=== PATIENT | male | born 1940 | race Caucasian/White ===

== ENCOUNTER 2017-05-07 04:13 | Emergency (ER) | payer MEDICARE ==
[2017-05-07 05:03] LABS: #Basophils 0.1 thou/uL (0.0-0.2); #Eosinphils 0.1 thou/uL (0.0-0.7); #Lymphocytes 1.8 thou/uL (1.20-3.40); #Monocytes 0.9 thou/uL (0.11-0.59); #Neutrophils 6.9 thou/uL (1.40-6.50); %Eosinophils 1.4 % (0.0-10.0); %Lymphocytes 18.6 % (21.0-51.0); %Monocytes 8.6 % (0.0-10.0); %Neutrophils 70.3 % (42.0-75.0); Hemoglobin 14.9 g/dL (14.0-18.0); Mean Corpuscular HGB CONC 34.1 g/dL (32.0-36.0); Mean Corpuscular Hemoglobin 31.3 pg (27.0-31.0); Mean Corpuscular Volume 91.8 fl (80.0-94.0); Mean Platelet Volume 6.9 fL (7.4-10.4); Platelet Count 220 thou/uL (130-400); RBC Distribution Width 12.1 % (11.5-14.5); Red Blood Cell (RBC) Count 4.76 mill/uL (4.70-6.10); White Blood Cell (WBC) Count 9.8 thou/uL (4.8-10.8)
[2017-05-07 05:17] LABS: ALT (SGPT) 15 U/L (8-55); AST (SGOT) 18 U/L (5-34); Albumin 4.7 g/dL (3.4-4.8); Alkaline Phosphatase 103 U/L (40-150); Anion Gap 13 mmol/L (10-20); BUN (Urea Nitrogen) 13 mg/dL (8.4-25.7); Bilirubin, Total 0.6 mg/dL (0.2-1.2); CK (CPK) 108 U/L (30-200); Calc. Creatinine Clearance 0 mL/min (70-130); Calcium 9.7 mg/dL (7.8-10.44); Carbon Dioxide 28 mmol/L (23-31); Chloride 97 mmol/L (98-107); Estimated GFR-MDRD 85; Globulin 2.6 g/dL (2.4-3.5); Glucose 79 mg/dL (83-110); Lipase 30 U/L (8-78); Potassium 3.6 mmol/L (3.5-5.1); Protein, Total 7.3 g/dL (5.8-8.1); Sodium 134 mmol/L (136-145)
[2017-05-07 05:21] LABS: CKMB 1.8 ng/mL (0-6.6); Troponin I Less than 0.010 ng/mL (< 0.028)
--- NOTE | 2017-05-07 08:28 | RAD ---
PORTABLE CHEST: Date: 05/07/17 PROVIDED CLINICAL HISTORY: Chest pain. FINDINGS: Comparison made with the study dated 07/09/12. Cardiac and mediastinal silhouette is within normal limits. Chronic obstructive changes are suggested . Calcified granuloma right lung base. No focal consolidation, pleural fluid, or pneumothorax apparen t. IMPRESSION: No evidence for an acute cardiopulmonary process. POS: [facility]
--- NOTE | 2017-06-17 14:58 | EKG ---
Test Reason : Blood Pressure : / mmHG Vent. Rate : 077 BPM Atrial Rate : 077 BPM P-R Int : 120 ms QRS Dur : 100 ms QT Int : 392 ms P-R-T Axes : 065 030 067 degrees QTc Int : 443 ms Normal sinus rhythm Low voltage QRS Borderline ECG Confirmed by JACKSON BARDALES, SEBASTIÁN ([id number]), editorial intern LUIZA SANFORD ([id number]) on 06/17/2017 2:57:21 PM Referred By: Confirmed By:SEBASTIÁN PAZ MD
== END 2017-05-07 05:40 | disposition home or self-care (01) ==
LOC: ERS 04:13
DX: J44.9 Chronic obstructive pulmonary disease, unspecified (principal); I10 Essential (primary) hypertension; E78.00 Pure hypercholesterolemia, unspecified; N40.0 Benign prostatic hyperplasia without lower urinary tract symptoms; F17.210 Nicotine dependence, cigarettes, uncomplicated; Z79.899 Other long term (current) drug therapy
CPT/HCPCS: 71045; 80053; 82550; 82553; 83605; 83690; 83880; 84484; 85025; 85379; 87040; 93005; 94640; 96360; J7620

== ENCOUNTER 2018-02-08 07:32 | Emergency (ER) | payer MEDICARE ==
[2018-02-08] MEDS ORDERED: Magnesium 2 GM/50 ML BAG (IN WATER) ONE (07:55)
[2018-02-08] MEDS ORDERED: methylPREDNISolone Sod Succ/PF 125 MG/2 ML VIAL ONE (07:56)
[2018-02-08 08:18] LABS: #Basophils 0.1 thou/uL (0.0-0.2); #Lymphocytes 0.7 thou/uL (1.20-3.40); #Monocytes 0.6 thou/uL (0.11-0.59); #Neutrophils 8.5 thou/uL (1.40-6.50); %Basophils 1.2 % (0.0-1.0); %Eosinophils 0.2 % (0.0-10.0); %Monocytes 6.2 % (0.0-10.0); %Neutrophils 85.4 % (42.0-75.0); Hemoglobin 14.7 g/dL (14.0-18.0); Mean Corpuscular HGB CONC 34.3 g/dL (32.0-36.0); Mean Corpuscular Hemoglobin 31.3 pg (27.0-31.0); Mean Corpuscular Volume 91.2 fL (78.0-98.0); Mean Platelet Volume 6.6 fL (7.4-10.4); Platelet Count 212 thou/uL (130-400)
[2018-02-08 08:34] LABS: ALT (SGPT) 12 U/L (8-55); AST (SGOT) 16 U/L (5-34); Albumin 4.2 g/dL (3.4-4.8); Alkaline Phosphatase 99 U/L (40-150); Anion Gap 14 mmol/L (10-20); BUN (Urea Nitrogen) 10 mg/dL (8.4-25.7); Bilirubin, Total 0.4 mg/dL (0.2-1.2); Calc. Creatinine Clearance 0 mL/min (70-130); Calcium 9.4 mg/dL (7.8-10.44); Carbon Dioxide 26 mmol/L (23-31); Chloride 96 mmol/L (98-107); Estimated GFR-MDRD 89; Globulin 2.7 g/dL (2.4-3.5); Glucose 101 mg/dL (83-110); Potassium 3.6 mmol/L (3.5-5.1); Protein, Total 6.9 g/dL (5.8-8.1); Sodium 132 mmol/L (136-145)
--- NOTE | 2018-02-08 08:53 | RAD ---
FRONTAL VIEW CHEST: Comparison: 05-03-13 Indication: Dyspnea. Shortness of breath, recent onset, progressive in intensity with productive coug h. FINDINGS: There is interstitial prominence of each lung and the lungs are mildly hyperinflated. Stable right de nsity nodule in the infralateral right chest favors a granulomatous calcification and is similar to . Cardiac silhouette is accentuated with portable technique. There is vascular calcification. IMPRESSION: COPD. POS: [facility]
== END 2018-02-08 09:19 | disposition home or self-care (01) ==
LOC: ERS 07:32
DX: J44.1 Chronic obstructive pulmonary disease with (acute) exacerbation (principal); I10 Essential (primary) hypertension; E78.00 Pure hypercholesterolemia, unspecified; F41.9 Anxiety disorder, unspecified; F17.210 Nicotine dependence, cigarettes, uncomplicated; Z79.899 Other long term (current) drug therapy; Z79.82 Long term (current) use of aspirin
CPT/HCPCS: 71045; 80053; 83880; 84484; 85025; 93005; 94640; 96365; 96375; J2930; J7620

== ENCOUNTER 2018-02-09 13:00 | Emergency (ER) | payer MEDICARE ==
[2018-02-09 13:36] LABS: #Lymphocytes 0.7 thou/uL (1.20-3.40); #Monocytes 0.4 thou/uL (0.11-0.59); %Basophils 0.1 % (0.0-1.0); %Eosinophils 0.1 % (0.0-10.0); %Lymphocytes 5.6 % (21.0-51.0); %Neutrophils 91.3 % (42.0-75.0); Mean Corpuscular HGB CONC 34.2 g/dL (32.0-36.0); Mean Corpuscular Hemoglobin 31.4 pg (27.0-31.0); Mean Corpuscular Volume 91.8 fL (78.0-98.0); Mean Platelet Volume 6.6 fL (7.4-10.4); Platelet Count 222 thou/uL (130-400); RBC Distribution Width 11.9 % (11.5-14.5); Red Blood Cell (RBC) Count 4.78 mill/uL (4.70-6.10); White Blood Cell (WBC) Count 12.1 thou/uL (4.8-10.8)
[2018-02-09 13:56] LABS: ALT (SGPT) 14 U/L (8-55); AST (SGOT) 16 U/L (5-34); Albumin 4.3 g/dL (3.4-4.8); Alkaline Phosphatase 115 U/L (40-150); Anion Gap 15 mmol/L (10-20); BUN (Urea Nitrogen) 14 mg/dL (8.4-25.7); Bilirubin, Total 0.4 mg/dL (0.2-1.2); Calc. Creatinine Clearance 0 mL/min (70-130); Calcium 9.4 mg/dL (7.8-10.44); Carbon Dioxide 26 mmol/L (23-31); Chloride 93 mmol/L (98-107); Estimated GFR-MDRD 79; Globulin 2.6 g/dL (2.4-3.5); Glucose 147 mg/dL (83-110); Potassium 3.5 mmol/L (3.5-5.1); Protein, Total 6.9 g/dL (5.8-8.1); Sodium 130 mmol/L (136-145)
--- NOTE | 2018-02-09 14:00 | RAD ---
PORTABLE CHEST ONE VIEW: Date: 02-09-18 Time: 1:35 p.m. History: Shortness of breath. Dyspnea. FINDINGS: Comparison made with exam of previous day. The heart size is normal. Changes of COPD and old granulomatous disease are again seen. No focal area s of consolidation, pneumothoraces, kenrick pulmonary edema or large effusions are seen. IMPRESSION: No acute process. POS: [facility]
--- NOTE | 2018-02-11 17:58 | EKG ---
Test Reason : SOB Blood Pressure : / mmHG Vent. Rate : 069 BPM Atrial Rate : 069 BPM P-R Int : 130 ms QRS Dur : 104 ms QT Int : 422 ms P-R-T Axes : 057 029 070 degrees QTc Int : 452 ms Sinus rhythm with frequent Premature ventricular complexes Otherwise normal ECG Confirmed by YANETH FERRER DO ([id number]), photography editor LUIZA SANFORD ([id number]) on 02/11/2018 5:58:03 PM Referred By: Confirmed By:YANETH FERRER DO
== END 2018-02-09 15:16 | disposition home or self-care (01) ==
LOC: ERS 13:00
DX: J44.1 Chronic obstructive pulmonary disease with (acute) exacerbation (principal); I10 Essential (primary) hypertension; E78.00 Pure hypercholesterolemia, unspecified; N40.0 Benign prostatic hyperplasia without lower urinary tract symptoms; F17.210 Nicotine dependence, cigarettes, uncomplicated; F41.9 Anxiety disorder, unspecified; Z79.899 Other long term (current) drug therapy; Z79.82 Long term (current) use of aspirin
CPT/HCPCS: 71045; 80053; 83880; 84484; 85025; 93005; 94640; J7620

== ENCOUNTER 2019-11-29 02:16 | Emergency (ER) | payer MEDICARE ==
[2019-11-29 03:15] LABS: #Basophils 0.1 thou/uL (0.0-0.2); #Eosinphils 0.2 thou/uL (0.0-0.7); #Lymphocytes 1.4 thou/uL (1.20-3.40); #Monocytes 0.8 thou/uL (0.11-0.59); #Neutrophils 6.7 thou/uL (1.40-6.50); %Basophils 0.6 % (0.0-1.0); %Eosinophils 1.9 % (0.0-10.0); %Lymphocytes 15.1 % (21.0-51.0); %Neutrophils 73.5 % (42.0-75.0); Hemoglobin 13.7 g/dL (14.0-18.0); Mean Corpuscular HGB CONC 34.7 g/dL (32.0-36.0); Mean Corpuscular Hemoglobin 31.9 pg (27.0-31.0); Mean Platelet Volume 6.2 fL (7.4-10.4); Platelet Count 247 thou/uL (130-400); Red Blood Cell (RBC) Count 4.29 mill/uL (4.70-6.10); White Blood Cell (WBC) Count 9.1 thou/uL (4.8-10.8)
[2019-11-29 03:37] LABS: ALT (SGPT) 13 U/L (8-55); AST (SGOT) 16 U/L (5-34); Albumin 3.7 g/dL (3.4-4.8); Alkaline Phosphatase 84 U/L (40-110); Anion Gap 14 mmol/L (10-20); BUN (Urea Nitrogen) 7 mg/dL (8.4-25.7); Bilirubin, Total 0.7 mg/dL (0.2-1.2); Calc. Creatinine Clearance 0 mL/min (70-130); Calcium 8.8 mg/dL (7.8-10.44); Carbon Dioxide 26 mmol/L (23-31); Chloride 91 mmol/L (98-107); Estimated GFR-MDRD 89; Globulin 2.8 g/dL (2.4-3.5); Glucose 99 mg/dL (83-110); Potassium 3.5 mmol/L (3.5-5.1); Protein, Total 6.5 g/dL (5.8-8.1); Sodium 127 mmol/L (136-145)
[2019-11-29] MEDS ORDERED: Morphine 4 MG/ML VIAL ONE (03:54)
[2019-11-29] MEDS ORDERED: Lidocaine 2% Viscous Solution 10 ML, Aluminum & Magnesium Hydroxide 20 ML, Donnatal Eli... SSW SCH (04:30)
[2019-11-29] MEDS ORDERED: Dexamethasone 10 MG/ML VIAL ONE (05:36)
[2019-11-29] MEDS ORDERED: cefTRIAXone\\ROCEPHIN 1 GM VIAL ONE (05:36)
--- NOTE | 2019-11-29 08:01 | CT ---
PRELIMINARY REPORT/[facility]/EMERGENCY AFTER HOURS PROCEDURE EXAM: CT Neck with Intravenous Contrast. CLINICAL HISTORY: 79 yo M presenting with sudden onset throat swelling, hoarseness, and dysphagia. Pt states this start ed with coughing fit. He has hx of COPD, but denies new or worsening cough and SOB. He reports no difficulty handling secretions, but does not feel like he could drink water. TECHNIQUE: Axial computed tomography images of the neck with intravenous contrast. Sagittal and coronal reformat ions performed. CONTRAST: With; ISOVUE 370,100mL COMPARISON: None provided. FINDINGS: PHARYNX: There is soft tissue asymmetry noted along the hypopharyngeal region on the left extending into the e piglottis which is diffusely thickened. Abnormal soft tissue appears to be more edematous than masslike in nature with what may be some edematous changes also extending around the left submandibul ar gland. LARYNX: The larynx is unremarkable. Normal epiglottis. RETROPHARYNGEAL SPACE: No retropharyngeal soft tissue swelling or gas. She will call in proximal thoracic esophagus are alf ssly unremarkable. SALIVARY GLANDS: The parotid, submandibular, and sublingual glands are otherwise unremarkable. LYMPH NODES: No lymphadenopathy. THYROID: Diffuse goiters enlargement of the left lobe of the thyroid gland. BONES: No acute osseous abnormality. IMPRESSION: Soft tissue asymmetry-edema along the hypopharynx on the left extending into the epiglottis. Thyroid goiter Addendum electronically signed by Pedro Luu MD on November 29, 2019 5:09:18 AM CDT EXAM: CT Chest with Intravenous Contrast. CLINICAL HISTORY: 79 yo M presenting with sudden onset throat swelling, hoarseness, and dysphagia. Pt states this start ed with coughing fit. He has hx of COPD, but denies new or worsening cough and SOB. He reports no difficulty handling secretions, but does not feel like he could drink water. TECHNIQUE: Axial computed tomography images of the chest with intravenous contrast. CONTRAST: With; ISOVUE 370,100mL COMPARISON: None provided. FINDINGS: LUNGS: Some complex airspace disease dependently at the left lung base, nonspecific with some more chronic a ppearing changes along the mediastinal pleura at the right lung base. Medial to the airspace disease is a nodular density measuring about 12 mm directly adjacent to the ventricular heart border. Diffuse emphysema. This is moderate to moderately severe. Right lower lobe granuloma. PLEURAL SPACES: No pleural effusion. No pneumothorax. HEART AND MEDIASTINUM: No cardiomegaly. No significant pericardial effusion. Chronic granulomatous changes are noted. No esophageal dilatation. No obvious filling defects within the esophagus although evaluation of the esophagus is fairly limited on CT. LYMPH NODES: No lymphadenopathy. BONES: No focal osseous abnormality or acute fracture. CHEST WALL AND UPPER ABDOMEN: There is a slightly complex 2.4 cm nodule on the right either within the adrenal gland or superior po le of the right kidney. The chest wall is unremarkable. Prominent goitrous changes of the left lobe of the thyroid gland. IMPRESSION: Some nonspecific airspace disease at the left lung base could be inflammatory or possibly secondary t o aspiration given the patient's history. Emphysema. Noncalcified nodule at the left lung base. Thyroid goiter. ELECTRONICALLY SIGNED BY: Pedro Luu MD Nov 29, 2019 3:59:31 AM CDT This report is intended for review by the ordering physician only, in accordance of law. If you recei ve this report in error, please call [facility] at [phone]. FINAL REPORT Final report by Dr. Graf Emergency after-hours study CT NECK SOFT TISSUES WITH CONTRAST: 11/29/2019 3:46 AM HISTORY: 79-year-old male with sudden onset of throat swelling, hoarseness, and dysphagia. FINDINGS: Diffuse edema of the supraglottic larynx, including edema and thickening of the epiglottis and bilate ral aryepiglottic folds. This is a minor disagreement with preliminary report by [facility], which states in one sentenc e that "LARYNX: The larynx is unremarkable. Normal epiglottis. " But in a another sentence, he contradicts himself stating "PHARYNX: There is soft tissue asymmetry no benigno along the hypopharyngeal region on the left extending into the epiglottis which is diffusely thickened. Abnormal. Edema extends into the hypopharynx bilaterally. True vocal cords and subglottic region within normal limits. 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 Edematous asymmetric enlargement of region of left palatine tonsil, effacing left oropharyngeal airwa y. No cervical lymphadenopathy. No retropharyngeal abscess. No major disagreement with preliminary report by [facility]. IMPRESSION: 1.) Laryngoedema involving supraglottic larynx (especially the epiglottis), and to a lesser degree hy popharynx. 2) Edema and asymmetrical enlargement of left side of oropharynx, in the region of the left palatine tonsil. 3) No abscess. Transcribed Date/Time: 11/29/2019 8:27 AM
--- NOTE | 2019-11-29 08:04 | CT ---
PRELIMINARY REPORT/[facility]/EMERGENCY AFTER HOURS PROCEDURE: EXAM: CT Neck with Intravenous Contrast. CLINICAL HISTORY: 79 yo M presenting with sudden onset throat swelling, hoarseness, and dysphagia. Pt states this started with coughing fit. He has hx of COPD, but denies new or worsening cough and SOB. He reports no difficulty handling secretions, but does not feel like he could drink water. TECHNIQUE: Axial computed tomography images of the neck with intravenous contrast. Sagittal and coron al reformations performed. CONTRAST: With; ISOVUE 370,100mL COMPARISON: None provided. FINDINGS: PHARYNX: There is soft tissue asymmetry noted along the hypopharyngeal region on the left extending i nto the epiglottis which is diffusely thickened. Abnormal soft tissue appears to be more edematous than masslike in nature with what may be some edematous changes also extending around the left subman dibular gland. LARYNX: The larynx is unremarkable. Normal epiglottis. RETROPHARYNGEAL SPACE: No retropharyngeal soft tissue swelling or gas. She will call in proximal [facility] racic esophagus are grossly unremarkable. SALIVARY GLANDS: The parotid, submandibular, and sublingual glands are otherwise unremarkable. LYMPH NODES: No lymphadenopathy. THYROID: Diffuse goiters enlargement of the left lobe of the thyroid gland. BONES: No acute osseous abnormality. IMPRESSION: Soft tissue asymmetry-edema along the hypopharynx on the left extending into the epiglott is. Thyroid goiter Addendum electronically signed by Pedro Luu MD on November 29, 2019 5:09:18 AM CDT EXAM: CT Chest with Intravenous Contrast. CLINICAL HISTORY: 79 yo M presenting with sudden onset throat swelling, hoarseness, and dysphagia. Pt states this start ed with coughing fit. He has hx of COPD, but denies new or worsening cough and SOB. He reports no difficulty handling secretions, but does not feel like he could drink water. TECHNIQUE: Axial computed tomography images of the chest with intravenous contrast. CONTRAST: With; ISOVUE 370,100mL COMPARISON: None provided. FINDINGS: LUNGS: Some complex airspace disease dependently at the left lung base, nonspecific with some more chronic a ppearing changes along the mediastinal pleura at the right lung base. Medial to the airspace disease is a nodular density measuring about 12 mm directly adjacent to the ventricular heart border. Diffuse emphysema. This is moderate to moderately severe. Right lower lobe granuloma. PLEURAL SPACES: No pleural effusion. No pneumothorax. HEART AND MEDIASTINUM: No cardiomegaly. No significant pericardial effusion. Chronic granulomatous changes are noted. No esophageal dilatation. No obvious filling defects within the esophagus although evaluation of the esophagus is fairly limited on CT. LYMPH NODES: No lymphadenopathy. BONES: No focal osseous abnormality or acute fracture. CHEST WALL AND UPPER ABDOMEN: There is a slightly complex 2.4 cm nodule on the right either within the adrenal gland or superior po le of the right kidney. The chest wall is unremarkable. Prominent goitrous changes of the left lobe of the thyroid gland. IMPRESSION: Some nonspecific airspace disease at the left lung base could be inflammatory or possibly secondary t o aspiration given the patient's history. Emphysema. Noncalcified nodule at the left lung base. Thyroid goiter. ELECTRONICALLY SIGNED BY: Pedro Luu MD Nov 29, 2019 3:59:31 AM CDT FINAL REPORT: CHEST CT WITH CONTRAST: HISTORY: Sudden onset stroke swelling, hoarseness and dysphasia. Coughing. COPD. COMPARISON: None. FINDINGS: Enlarged, heterogeneous left thyroid lobe. Nonemergent thyroid ultrasound is recommended Mediastinum: No mass, lymphadenopathy or hematoma. Heart: Normal heart size. No significant pericardial effusion. There are coronary calcifications. Aorta: Atherosclerosis. No aneurysm, dissection or periaortic fat stranding. Subdiaphragmatic structures: Indeterminate 2.2 x 2.2 cm right adrenal nodule. Trachea and central bronchi: Patent. Pleural spaces: No pleural effusion. Lungs: Extensive emphysematous changes. Patchy linear opacities in the middle lobe, superior segment of the right lower lobe and left lower lobe may represent multilobar pneumonia. 1.0 x 1.0 cm solid nodule in the left lower lobe may represent focal infiltrate versus mass. There is peribronchial thic kening involving both lower lobes. No lytic or blastic lesions within the osseous structures. IMPRESSION: 1. This report is in agreement with initial report by [facility]. 2. Emphysema. Nonspecific noncalcified nodule in the left lower lobe. Adjacent airspace opacities are presumed to be infectious or inflammatory process. Aspiration cannot be excluded. Short-term follow-up CT is recommended after appropriate medical management. If nodule persists, consider PET im aging. 3. Heterogeneous left thyroid nodule. Thyroid ultrasound is recommended. Results of the study discussed with Dr. Villasenor 11/29/2019 8:02 AM. Code CR Transcribed Date/Time: 11/29/2019 8:29 AM
[2019-11-29] MEDS ORDERED: Iopamidol-370 76% 500 ML 1 ML ONE (14:37)
== END 2019-11-29 06:11 | disposition home or self-care (01) ==
LOC: ERS 02:16
DX: R13.10 Dysphagia, unspecified (principal); J43.9 Emphysema, unspecified; I10 Essential (primary) hypertension; E78.00 Pure hypercholesterolemia, unspecified; F17.210 Nicotine dependence, cigarettes, uncomplicated
CPT/HCPCS: 70492; 71260; 80053; 85025; 96365; 96375; J0696; J1100; J2270; Q9967

== ENCOUNTER 2024-11-29 23:30 | Emergency (ER) | payer MEDICARE ==
[2024-11-30] MEDS ORDERED: Tranexamic Acid 1,000 MG/10 ML VIAL ONE (03:42)
[2024-11-30] MEDS ORDERED: cloNIDine 0.1 MG TAB ONE (05:12)
[2024-11-30 10:17] LABS: INR-International Normal Ratio 1.1; PTT 45.6 sec (22.9-36.1); Prothrombin Time 14.6 sec (12.0-14.7)
[2024-11-30 10:19] LABS: %Basophils 0.7 % (0.0-1.0); %Eosinophils 3.3 % (0.0-10.0); %Lymphocytes 8.9 % (21.0-51.0); %Monocytes 9.0 % (0.0-10.0); %Neutrophils 77.5 % (42.0-75.0); Hematocrit 33.0 % (42.0-52.0); Hemoglobin 10.7 g/dL (14.0-18.0); Mean Corpuscular Hemoglobin 27.9 pg (27.0-31.0); Mean Corpuscular Volume 85.9 fL (78.0-98.0); Platelet Count 257 10x3/uL (130-400); Red Blood Cell (RBC) Count 3.84 mill/uL (4.70-6.10); White Blood Cell (WBC) Count 9.45 10x3/uL (4.8-10.8)
[2024-11-30 10:20] LABS: #Basophils 0.07 10x3/uL (0.0-0.2); #Eosinophils 0.31 10x3/uL (0.0-0.7); #Monocytes 0.85 10x3/uL (0.11-0.59); #Neutrophils 7.32 10x3/uL (1.40-6.50)
[2024-11-30 13:25] LABS: ALT (SGPT) 10 U/L (Less than 45); AST (SGOT) 22 U/L (11-34); Albumin 3.7 g/dL (3.1-4.5); Alkaline Phosphatase 115 U/L (40-110); Anion Gap 17 mmol/L (10-20); BUN (Urea Nitrogen) 26 mg/dL (8.4-25.7); Bilirubin, Total 0.4 mg/dL (0.3-1.2); Calc. Creatinine Clearance 0 mL/min (70-130); Calcium 8.7 mg/dL (7.8-10.44); Carbon Dioxide 22 mmol/L (23-31); Chloride 106 mmol/L (98-107); Globulin 3.0 g/dL (2.4-3.5); Glucose 102 mg/dL (83-110); Potassium 3.8 mmol/L (3.5-5.1); Sodium 141 mmol/L (136-145)
== END 2024-11-30 06:07 | disposition home or self-care (01) ==
LOC: ERS 23:30
DX: K14.8 Other diseases of tongue (principal); I10 Essential (primary) hypertension
CPT/HCPCS: 80053; 85025; 85610; 85730; 86850; 86900; 86901; 99282